=== PATIENT | female | born 1970 ===

== ENCOUNTER 2017-12-02 09:01 | Emergency (ER) | payer OTHER ==
[2017-12-02 09:07] VITALS: PULSE 63; TEMP 97.6; O2SAT 99
[2017-12-02 09:14] VITALS: BP 111/62; RESP 19
[2017-12-02] MEDS ORDERED: Iohexol 240 (50 ml) PO ONE (09:22)
[2017-12-02 09:50] LABS: SQUAMOUS EPITHIAL < 1 /hpf (0-5); URINE BILIRUBIN NEGATIVE (NEGATIVE); URINE BLOOD NEGATIVE (NEGATIVE); URINE CLARITY CLEAR (Clear); URINE COLOR YELLOW (YELLOW); URINE GLUCOSE (UA) NEG (Normal); URINE LEUKOCYTE ESTERASE NEG Leu/uL (Negative); URINE PROTEIN NEGATIVE (NEGATIVE); URINE UROBILINOGEN 0.2-1.0 mg/dL (0.2-1.0)
[2017-12-02 09:53] LABS: EOS # 0.1 K/uL (0.0-0.7); EOS % 1.6 % (0.0-4.0); HEMOGLOBIN 12.8 g/dL (12.0-16.0); LYMPH # 1.5 K/uL (1.0-4.3); LYMPH % 36.6 % (20.0-40.0); MEAN CELL VOLUME 93.9 fl (81.0-99.0); MEAN CORPUSCULAR HEMOGLOBIN 32.3 pg (27.0-31.0); MEAN CORPUSCULAR HGB CONC 34.4 g/dL (33.0-37.0); MEAN PLATELET VOLUME 8.7 fl (7.2-11.7); MONO # 0.3 K/uL (0.0-0.8); MONO % 6.6 % (0.0-10.0); NEUT # 2.2 K/uL (1.8-7.0); NEUT % 54.2 % (50.0-75.0); NRBC % 0.2 % (0.0-0.0); RBC 3.96 Mil/uL (3.80-5.20); RED CELL DISTRIBUTION WIDTH 14.7 % (11.5-14.5); WHITE BLOOD COUNT 4.1 K/uL (4.8-10.8)
[2017-12-02 10:01] LABS: ALB/GLOB RATIO 1.1 (1.0-2.1); ALBUMIN 3.9 g/dL (3.5-5.0); ALT/SGPT 65 U/L (9-52); AST/SGOT 45 U/L (14-36); BLOOD UREA NITROGEN 10 mg/dl (7-17); CALCIUM 8.6 mg/dL (8.4-10.2); GFR AFRICAN-AMERICAN > 60; GFR NON-AFRICAN AMERICAN > 60; LIPASE 130 U/L (23-300)
[2017-12-02] MEDS ORDERED: Sodium Chloride 0.9% 1,000 ML IV STA (10:15)
[2017-12-02] MEDS ORDERED: Sodium Chloride 0.9% 100 ML ONE (12:02)
[2017-12-02] MEDS ORDERED: Iohexol 300 100 ML IJ ONE (12:02)
--- NOTE | 2017-12-02 12:15 | ED PDOC ---
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 denies: Vomiting, Diarrhea, Loss Of Appetite Exacerbating Factors: None Alleviating Factors: None Additional Complaint(s): 47yo female c/o RLQ pain radiating to R leg ongoing for 4 days. Symptoms associated w nausea, denies fever, vomiting or diarrhea, denies vaginal bleeding or discharge. No prior history of similar pain. Past Medical History Reviewed: Historical Data, Nursing Documentation, Vital Signs Vital Signs: Last Vital Signs Temp 97.6 F 12/02/17 09:06 Pulse 63 12/02/17 09:06 Resp 19 12/02/17 09:12 BP 111/62 12/02/17 09:12 Pulse Ox 99 12/02/17 12:19 - Medical History PMH: Gastritis Denies: Chronic Kidney Disease - Surgical History Surgical History: - Family History Family History: States: Unknown Family Hx - Living Arrangements Living Arrangements: With Family - Social History Current smoker - smoking cessation education provided: No - Home Medications Home Medications: Ambulatory Orders Medication Instructions Recorded Naproxen [Naprosyn] 500 mg PO BID PRN #14 tablet 12/02/17 - Allergies Allergies/Adverse Reactions: Allergies Allergy/AdvReac Type Severity Reaction Status Date / Time No Known Allergies Allergy Verified 12/02/17 09:11 Review of Systems Constitutional: Negative for: Fever, Chills Cardiovascular: Negative for: Palpitations Respiratory: Negative for: Cough Gastrointestinal: Positive for: Nausea, Abdominal Pain. Negative for: Vomiting Genitourinary Female: Negative for: Dysuria, Frequency Musculoskeletal: Negative for: Neck Pain, Shoulder Pain, Hand Pain Skin: Negative for: Rash, Lesions, Jaundice Neurological: Negative for: Weakness, Numbness Psych: Negative for: Anxiety Physical Exam - Reviewed Nursing Documentation Reviewed: Yes Vital Signs Reviewed: Yes - Physical Exam Appears: Positive for: Well, Non-toxic, No Acute Distress Head Exam: Positive for: ATRAUMATIC, NORMAL INSPECTION, NORMOCEPHALIC Skin: Positive for: Normal Color, Warm, DRY Eye Exam: Positive for: EOMI, Normal appearance, PERRL ENT: Positive for: Normal ENT Inspection Neck: Positive for: Normal, Painless ROM Cardiovascular/Chest: Positive for: Regular Rate, Rhythm Respiratory: Positive for: CNT, Normal Breath Sounds Gastrointestinal/Abdominal: Positive for: Bowel Sounds, Soft, Tenderness (+RLQ) . Negative for: Guarding Back: Positive for: Normal Inspection Extremity: Positive for: Normal ROM Neurologic/Psych: Positive for: Alert, Oriented - Laboratory Results Result Diagrams: 12/02/17 09:44 12/02/17 09:44 Urine POC: Negative - ECG O2 Sat by Pulse Oximetry: 99 Pulse Ox Interpretation: Normal Medical Decision Making Medical Decision Making: workup for atypical abdominal pain w radiation to R leg initiated labwork and CT abd pelv ordered, toradol low dose for analgesia and IVF bolus labs reviewed and unremarkable CT abd pelv Accession No. 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 This CT exam was performed using one or more of the following dose reduction techniques: Automated exposure control, adjustment of the mA and/or kV according to patient size, and/or use of iterative reconstruction technique. FINDINGS: LOWER THORAX: Unremarkable. LIVER: Unremarkable. No gross lesion or ductal dilatation. GALLBLADDER AND BILE DUCTS: Unremarkable. PANCREAS: Unremarkable. No gross lesion or ductal dilatation. SPLEEN: Unremarkable. ADRENALS: Unremarkable. No mass. KIDNEYS AND URETERS: Unremarkable. No hydronephrosis. No solid mass. VASCULATURE: Unremarkable. No aortic aneurysm. BOWEL: No bowel obstruction. Previously identified fluid density structure is again identified along the anti mesenteric border of the colon at the descending/ sigmoid junction. It is bilobed and has a nodular mural calcification. It measures approximately 1.6 cm in greatest dimension, as seen from the coronal view. It is essentially unchanged from prior examination. Significance uncertain. APPENDIX: Normal appendix. PERITONEUM: Unremarkable. No free fluid. No free air. LYMPH NODES: Unremarkable. No enlarged lymph nodes. BLADDER: Unremarkable. REPRODUCTIVE: Normal uterus BONES: No acute fracture. OTHER FINDINGS: None. IMPRESSION: No evidence of appendicitis, diverticulitis or colitis. Stable 1.6 cm bilobed cystic structure along the anti mesenteric border of the colon at the descending / sigmoid junction. Punctate mural calcification noted associated with this structure. As there has been no exchange consultant approximately 1 year, this is not concerning for a neoplastic process. re-eval at 140p improved denies any pain Indemand interpreted Patience used to explain findings need for followup and indications for return to clinic. Unclear significance of GI finding, referred to clinic for GI clinic evaluation. Disposition - Clinical Impression Clinical Impression: Abdominal pain - Patient ED Disposition Is Patient to be Admitted: No Counseled Patient/Family Regarding: Studies Performed, Diagnosis, Need For Followup - Disposition Referrals: [facility] [Outside] Disposition: Routine/Home Disposition Time: 13:45 Condition: STABLE Additional Instructions: Return to ER for any worse or new symptoms. See clinic for referral to gastroenterology. Prescriptions: Naproxen [Naprosyn] 500 mg PO BID PRN #14 tablet PRN Reason: Pain, Moderate (4-7) Instructions: Acute Abdomen (Belly Pain), Adult (DC) Forms: [employer] (Kiswahili) Print Language: TURKMEN
--- NOTE | 2017-12-02 13:06 | CT ---
PROCEDURE: CT Abdomen and Pelvis with contrast HISTORY: RLQ abdominal pain COMPARISON: 12/12/2016 TECHNIQUE: Contrast dose: 95 cc Omnipaque 300 Radiation dose: Total exam DLP = 577.74 mGy-cm. This CT exam was performed using one or more of the following dose reduction techniques: Automated exposure control, adjustment of the mA and/or kV according to patient size, and/or use of iterative reconstruction technique. FINDINGS: LOWER THORAX: Unremarkable. LIVER: Unremarkable. No gross lesion or ductal dilatation. GALLBLADDER AND BILE DUCTS: Unremarkable. PANCREAS: Unremarkable. No gross lesion or ductal dilatation. SPLEEN: Unremarkable. ADRENALS: Unremarkable. No mass. KIDNEYS AND URETERS: Unremarkable. No hydronephrosis. No solid mass. VASCULATURE: Unremarkable. No aortic aneurysm. BOWEL: No bowel obstruction. Previously identified fluid density structure is again identified along the anti mesenteric border of the colon at the descending/ sigmoid junction. It is bilobed and has a nodular mural calcification. It measures approximately 1.6 cm in greatest dimension, as seen from the coronal view. It is essentially unchanged from prior examination. Significance uncertain. APPENDIX: Normal appendix. PERITONEUM: Unremarkable. No free fluid. No free air. LYMPH NODES: Unremarkable. No enlarged lymph nodes. BLADDER: Unremarkable. REPRODUCTIVE: Normal uterus BONES: No acute fracture. OTHER FINDINGS: None. IMPRESSION: No evidence of appendicitis, diverticulitis or colitis. Stable 1.6 cm bilobed cystic structure along the anti mesenteric border of the colon at the descending/ sigmoid junction. Punctate mural calcification noted associated with this structure. As there has been no knife changer approximately 1 year, this is not concerning for a neoplastic process.
== END 2017-12-02 14:00 | disposition home or self-care (01) ==
LOC: H.ER 09:01
DX: R10.31 Right lower quadrant pain (principal)
CPT/HCPCS: 74177; 80053; 81003; 81025; 83690; 85025; 99284; J1885; J7040; Q9966; Q9967

== ENCOUNTER 2018-09-13 06:16 | Emergency (ER) | payer SELFPAY ==
[2018-09-13 06:57] VITALS: BMI 28.3
[2018-09-13] MEDS ORDERED: Morphine 4 MG/ML VIAL IV STA (07:43)
--- NOTE | 2018-09-13 07:52 | ED PDOC ---
HPI: Abdomen Time Seen by Provider: 09/13/18 07:04 Chief Complaint (Nursing): Abdominal Pain Chief Complaint (Provider): Abdominal Pain History Per: Patient History/Exam Limitations: no limitations Onset/Duration Of Symptoms: Days (x 2 weeks) Location Of Pain/Discomfort: Diffuse Quality Of Discomfort: "Pain" Associated Symptoms: Nausea Last Bowel Movement: Days Ago (three) Additional Complaint(s): 48 year old female with a history of gastritis presents to the ED with constant, generalized abdominal pain associated with nausea for the last two weeks. Patient reports that pain initially was located in the upper abdomen and now it has moved to the lower abdomen. Her last BM was three days ago. Patient states that she was seen at the clinic last , four days ago, and was given an u nknown antibiotic for an unknown reason. Denies diarrhea, fever and vomiting. PMD: none provided Past Medical History Reviewed: Historical Data, Nursing Documentation, Vital Signs Vital Signs: Last Vital Signs Temp 98.5 F 09/13/18 06:58 Pulse 57 L 09/13/18 06:58 Resp 16 09/13/18 06:58 BP Pulse Ox 98 09/13/18 06:58 - Medical History PMH: Gastritis Denies: Chronic Kidney Disease - Surgical History Surgical History: - Family History Family History: States: Unknown Family Hx - Social History Current smoker - smoking cessation education provided: No Alcohol: None - Home Medications Home Medications: Ambulatory Orders Medication Instructions Recorded Naproxen [Naprosyn] 500 mg PO BID PRN #14 tablet 12/02/17 Dicyclomine [Bentyl] 20 mg PO QID PRN #10 tab 09/13/18 Ondansetron ODT [Zofran ODT] 4 mg PO Q8H PRN #20 odt 09/13/18 - Allergies Allergies/Adverse Reactions: Allergies Allergy/AdvReac Type Severity Reaction Status Date / Time No Known Allergies Allergy Verified 12/02/17 09:11 Review of Systems ROS Statement: Except As Marked, All Systems Reviewed And Found Negative Constitutional: Negative for: Fever, Chills Gastrointestinal: Positive for: Nausea, Abdominal Pain. Negative for: Vomiting, Diarrhea Genitourinary Female: Negative for: Dysuria, Frequency Physical Exam - Reviewed Nursing Documentation Reviewed: Yes Vital Signs Reviewed: Yes - Physical Exam Appears: Positive for: Non-toxic, No Acute Distress Head Exam: Positive for: ATRAUMATIC, NORMAL INSPECTION, NORMOCEPHALIC Skin: Positive for: Normal Color, Warm, Dry Eye Exam: Positive for: EOMI, Normal appearance, PERRL Neck: Positive for: Normal, Painless ROM, Supple Cardiovascular/Chest: Positive for: Regular Rate, Rhythm. Negative for: Murmur Respiratory: Positive for: Normal Breath Sounds. Negative for: Respiratory Distress Gastrointestinal/Abdominal: Positive for: Tenderness (generalized abdominal tenderness). Negative for: Mass, Guarding, Rebound Extremity: Positive for: Normal ROM (x 4). Negative for: Deformity Neurologic/Psych: Positive for: Alert (x 3), Oriented. Negative for: Motor/ Sensory Deficits - Laboratory Results Result Diagrams: 09/13/18 09:00 09/13/18 09:00 - ECG ECG Rhythm: Positive for: Sinus Bradycardia Rate: 49 O2 Sat by Pulse Oximetry: 98 (RA) Pulse Ox Interpretation: Normal Medical Decision Making Medical Decision Makin:39 Impression: abdominal pain Initial Plan: --CT Abd & Pelvis --CMP --CBC --Lipase --PTT --PT --Urine dip --Urine preg --Morphine 2 mg IV --UA CT Abd & Pelvis FINDINGS: LOWER THORAX: Unremarkable. LIVER: Unremarkable. No gross lesion or ductal dilatation. GALLBLADDER AND BILE DUCTS: Unremarkable. PANCREAS: Unremarkable. No gross lesion or ductal dilatation. SPLEEN: Unremarkable. ADRENALS: Unremarkable. No mass. KIDNEYS AND URETERS: Unremarkable. No hydronephrosis. No solid mass. VASCULATURE: Unremarkable. No aortic aneurysm. No atherosclerotic calcification or mural plaque present. BOWEL: Unremarkable. No obstruction. No gross mural thickening. APPENDIX: Normal appendix. PERITONEUM: Unremarkable. No free fluid. No free air. LYMPH NODES: Unremarkable. No enlarged lymph nodes. BLADDER: Unremarkable. REPRODUCTIVE: Partially deformed, collapsed right adnexal cyst likely recently ruptured cyst. Lobulated contour to the uterus likely fibroid uterus. BONES: No acute fracture. OTHER FINDINGS: None. IMPRESSION: No acute findings related to/ accounting for the clinical presentation. Additional benign and/or incidental findings described above. No significant interval change compared to the prior examination(s). Scribe Attestation: Documented by Antonina Mendoza acting as a scribe for Padmini Smith MD Provider Scribe Attestation: All medical record entries made by the Scribe were at my direction and pe rsonally dictated by me. I have reviewed the chart and agree that the record accurately reflects my personal performance of the history, physical exam, medical decision making, and the department course for this patient. I have also personally directed, reviewed, and agree with the discharge instructions and disposition. Disposition - Clinical Impression Clinical Impression: Abdominal pain in female - Disposition Referrals: [facility] [Outside] Disposition: Routine/Home Disposition Time: 18:21 Condition: STABLE Prescriptions: Dicyclomine [Bentyl] 20 mg PO QID PRN #10 tab PRN Reason: Pain, Moderate (4-7) Ondansetron ODT [Zofran ODT] 4 mg PO Q8H PRN #20 odt PRN Reason: Nausea/Vomiting Instructions: Acute Abdomen (Belly Pain) Forms: [employer] (Portuguese) Print Language: BULGARIAN
[2018-09-13] MEDS ORDERED: Morphine 4 MG/ML VIAL ONE (08:17)
[2018-09-13 09:27] LABS: BASO # 0.1 K/uL (0.0-0.2); BASO % 0.9 % (0.0-2.0); EOS # 0.1 K/uL (0.0-0.7); EOS % 1.3 % (0.0-4.0); LYMPH # 2.1 K/uL (1.0-4.3); LYMPH % 34.9 % (20.0-40.0); MEAN CELL VOLUME 95.3 fl (81.0-99.0); MEAN CORPUSCULAR HEMOGLOBIN 32.1 pg (27.0-31.0); MEAN CORPUSCULAR HGB CONC 33.7 g/dL (33.0-37.0); MEAN PLATELET VOLUME 9.6 fl (7.2-11.7); MONO # 0.5 K/uL (0.0-0.8); MONO % 7.6 % (0.0-10.0); NEUT # 3.3 K/uL (1.8-7.0); NEUT % 55.3 % (50.0-75.0); NRBC % 0.1 % (0.0-0.0); RBC 4.05 Mil/uL (3.80-5.20)
[2018-09-13 09:29] LABS: SQUAMOUS EPITHIAL 2 /hpf (0-5); URINE BILIRUBIN NEGATIVE (NEGATIVE); URINE BLOOD SMALL (NEGATIVE); URINE CLARITY SLIGHTY-CLOUDY (Clear); URINE COLOR YELLOW (YELLOW); URINE GLUCOSE (UA) NEG (NEGATIVE); URINE HYALINE CAST 0-2 /hpf (0-2); URINE LEUKOCYTE ESTERASE NEG Leu/uL (Negative); URINE PROTEIN NEGATIVE (NEGATIVE); URINE UROBILINOGEN 0.2-1.0 mg/dL (0.2-1.0)
[2018-09-13 09:45] VITALS: RESP 18
[2018-09-13 09:45] LABS: ALB/GLOB RATIO 1.2 (1.0-2.1); ALBUMIN 4.4 g/dL (3.5-5.0); ALT/SGPT 26 U/L (9-52); AST/SGOT 58 U/L (14-36); BLOOD UREA NITROGEN 11 mg/dl (7-17); CALCIUM 8.7 mg/dL (8.4-10.2); GFR NON-AFRICAN AMERICAN > 60; LIPASE 118 U/L (23-300)
[2018-09-13] MEDS ORDERED: Iohexol 300 100 ML IJ ONE (10:36)
[2018-09-13] MEDS ORDERED: Sodium Chloride 0.9% 50 ML IV ONE (10:36)
[2018-09-13 11:25] LABS: PROTHROMBIN TIME 11.9 Seconds (9.8-13.1)
[2018-09-13 11:27] LABS: PARTIAL THROMBOPLASTIN TIME 33.2 Seconds (25.6-37.1)
--- NOTE | 2018-09-13 12:29 | CT ---
Date of service: 09/13/2018 PROCEDURE: CT Abdomen and Pelvis with contrast HISTORY: Generalized abdominal pain. COMPARISON: 12/02/2017. CT abdomen and pelvis 09/01/2018 [facility] TECHNIQUE: Intravenous contrast dose: 95 cc Omnipaque 300. Radiation dose: Total exam DLP = <inf_radiation_dlp> mGy-cm. This CT exam was performed using one or more of the following dose reduction techniques: Automated exposure control, adjustment of the mA and/or kV according to patient size, and/or use of iterative reconstruction technique. FINDINGS: LOWER THORAX: Unremarkable. LIVER: Unremarkable. No gross lesion or ductal dilatation. GALLBLADDER AND BILE DUCTS: Unremarkable. PANCREAS: Unremarkable. No gross lesion or ductal dilatation. SPLEEN: Unremarkable. ADRENALS: Unremarkable. No mass. KIDNEYS AND URETERS: Unremarkable. No hydronephrosis. No solid mass. VASCULATURE: Unremarkable. No aortic aneurysm. No atherosclerotic calcification or mural plaque present. BOWEL: Unremarkable. No obstruction. No gross mural thickening. APPENDIX: Normal appendix. PERITONEUM: Unremarkable. No free fluid. No free air. LYMPH NODES: Unremarkable. No enlarged lymph nodes. BLADDER: Unremarkable. REPRODUCTIVE: Partially deformed, collapsed right adnexal cyst likely recently ruptured cyst. Lobulated contour to the uterus likely fibroid uterus. BONES: No acute fracture. OTHER FINDINGS: None. IMPRESSION: No acute findings related to/ accounting for the clinical presentation. Additional benign and/or incidental findings described above. No significant interval change compared to the prior examination(s).
[2018-09-13] MEDS ORDERED: Sodium Chloride 0.9% 1,000 ML IV STA ×2 (12:59)
--- NOTE | 2018-09-13 14:18 | CARD ---
APPROVED REPORT Date of service: 09/13/2018 EKG Measurement Heart [id number] PA [id number] [id number] <Conclusion> Sinus bradycardia Otherwise normal ECG
[2018-09-13 14:34] VITALS: TEMP 98
[2018-09-13 15:09] VITALS: BP 88/59
[2018-09-18 12:33] VITALS: PULSE 49; O2SAT 98
== END 2018-09-13 16:15 | disposition home or self-care (01) ==
LOC: H.ER 06:16
DX: R10.2 Pelvic and perineal pain (principal)
CPT/HCPCS: 74177; 80053; 81003; 81025; 83690; 85025; 85610; 85730; 93005; 96372; 99283; J0500; Q9967